=== PATIENT | female | born 1960 | race Caucasian/White ===

== ENCOUNTER → 2017-07-05 | Outpatient (CLI) | payer OTHER ==
[2017-07-05 13:03] LABS: Free Thyroxine 1.39 ng/dL (0.70-1.60); Thyroid Stimulating Hormone 0.031 uIU/mL (0.360-4.800)
== END ==
LOC: LAB 12:36
PROVIDERS: Family Medicine
DX: E03.9 Hypothyroidism, unspecified (principal)
CPT/HCPCS: 84439; 84443; 84481

== ENCOUNTER 2023-01-07 11:05 | Day surgery (SDC) | payer OTHER ==
[~2023-01-07] VITALS: Ht 172.7 cm; Wt 105.1 kg
[2023-01-07] MEDS ORDERED: LEVSOD75 ×2 (11:30→11:33)
[2023-01-07] MEDS ORDERED: LOSA25 (11:30)
[2023-01-07] MEDS ORDERED: LIOT5 (11:31)
[2023-01-07 12:55] VITALS: BP 110/74
== END 2023-01-07 13:01 | disposition home or self-care (01) ==
LOC: ORSCSDS 11:05
PROVIDERS: Internal Medicine Gastroenterology
PROC: 0DJD8ZZ Inspection of Lower Intestinal Tract, Via Natural or Artificial Opening Endoscopic (ICD-10-PCS; principal; 2023-01-07 12:30)
DX: Z12.11 Encounter for screening for malignant neoplasm of colon (principal); K57.30 Diverticulosis of large intestine without perforation or abscess without bleeding; I10 Essential (primary) hypertension; E11.9 Type 2 diabetes mellitus without complications; E78.5 Hyperlipidemia, unspecified; E03.9 Hypothyroidism, unspecified; E66.9 Obesity, unspecified; Z68.35 Body mass index [BMI] 35.0-35.9, adult; Z79.899 Other long term (current) drug therapy
CPT/HCPCS: 82947; J2704; J7120

== ENCOUNTER → 2024-07-14 | Outpatient (CLI) | payer OTHER ==
[~2024-07-14] MED LIST: LEVSOD75; LIOT5; LOSA25
== END | disposition home or self-care (01) ==
LOC: LAB SHORT 15:53
DX: R30.0 Dysuria (principal)
CPT/HCPCS: 87086